=== PATIENT | female | born 1980 | race Caucasian/White ===

== ENCOUNTER → 2016-10-05 | Outpatient (CLI) | payer OTHER ==
--- NOTE | ~2016-10-05 | US5 ---
[facility] A Service of [facility] RADIOLOGY TEXT RESULTS PATIENT: MANN HASSAN LOCATION: [facility] : 82 UNIT #: [id number] AGE: [address]: ALEXIS VITAL SEX: F ORDER DR: [id number] [address] [address] [id number] O MR#: [id number] Acc #: [id number] NAME: MANN HASSAN : 1980 SEX: F STUDY DATE/TIME: 10/05/2016 11:57 UNIT: [facility] ROOM: STUDY DESCRIPTION: US Abdominal Complete Attending Physician: Alexis Vital Aprn Ordering Physician: Physician Non-Staff Primary Care Physician: Diego Tai M.D. MEDICAL IMAGING REPORT This report is preliminary unless electronic signature is present EXAM Abdominal ultrasound INDICATION Hepatitis C. Observation for cirrhosis and hepatocellular carcinoma. PROCEDURE Bergeron-scale, Doppler imaging of the abdomen. COMPARISON None. FINDINGS Pancreas is mostly obscured and not well seen. Liver measures 14.8 cm. No liver mass on submitted images and liver is not frankly cirrhotic by ultrasound. Unremarkable gallbladder. 1.3 cm hyperechoic lesion in the right kidney. Common duct measures 2 mm. Submitted images abdominal aorta inferior vena cava unremarkable. Spleen measures 12 cm. Left kidney measures 10.6 cm. No hydronephrosis. IMPRESSION 1. The liver is not frankly cirrhotic by ultrasound. There is no liver mass seen on submitted images. 2. 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 Dictated by... Bradly Evans M.D. THIS IS AN ELECTRONICALLY VERIFIED REPORT Bradly Evans M.D. at 10/09/2016 8:21 AM EED/mjs [facility] A Service of [facility] RADIOLOGY TEXT RESULTS PATIENT: MANN HASSAN LOCATION: [facility] : 82 UNIT #: [id number] AGE: [address]: ALEXIS VITAL SEX: F ORDER DR: TD: 10/06/2016 08:13 JOB #: [id number] MEDICAL IMAGING REPORT Page 1 of 1 COPY
== END | disposition home or self-care (01) ==
LOC: CWCC 11:10
DX: B18.2 Chronic viral hepatitis C (principal); D17.71 Benign lipomatous neoplasm of kidney
CPT/HCPCS: 76700